=== PATIENT | male | born 1960 | race Caucasian/White ===

== ENCOUNTER 2017-02-08 07:23 | Day surgery (SDC) | payer MEDICAID ==
[~2017-02-08] VITALS: Ht 190.5 cm; Wt 127.0 kg
[2017-02-08] MEDS ORDERED: ASPIRIN/SOD BICARB/CITRIC ACID 324MG TAB EFF ONE (07:47)
[2017-02-08] MEDS ORDERED: ASPI-1159 PO (07:55)
[2017-02-08] MEDS ORDERED: METO-296 PO (07:55)
[2017-02-08] MEDS ORDERED: MIDAZOLAM HCL 2 MG/2 ML VIAL ONE (08:16)
[2017-02-08] MEDS ORDERED: IODIXANOL 320MG/ML 100 ML BOTTLE IV ONE (08:16)
[2017-02-08] MEDS ORDERED: FENTANYL CITRATE/PF 50MCG/ML 2ML VIAL ONE (08:16)
[2017-02-08] MEDS ORDERED: HEPARIN SODIUM 1,000 UNIT/1ML VIAL IV ONE (08:16)
[2017-02-08] MEDS ORDERED: LIDOCAINE HCL 1% 20ML VIAL (Pyxis) INJ ONE (08:17)
[2017-02-08] MEDS ORDERED: HYDROMORPHONE HCL/PF 2MG/ML (OR) ONE (08:30)
[2017-02-08] MEDS ORDERED: SODIUM CHLORIDE 0.45% 1,000 ML IV ONE (09:00)
[2017-02-08] MEDS ORDERED: ONDANSETRON HCL 4MG/2ML VIAL IV PRN (09:00)
[2017-02-08] MEDS ORDERED: ATROPINE SULFATE 1MG/10ML SYR IV PRN (09:00)
[2017-02-08] MEDS ORDERED: MORPHINE SULFATE 2 MG/ML CPJ (NOT FOR IM USE) IV PRN (09:00)
[2017-02-08] MEDS ORDERED: ACETAMINOPHEN 325MG TABLET PO PRN (09:00)
[2017-02-08] MEDS ORDERED: NICARDIPINE 100MCG/ML 10ML VIAL (CATH LAB) IV ONE (14:03)
[2017-02-08] MEDS ORDERED: NITROGLYCERIN 50MCG/ML 10ML VIAL (CATH LAB) IV ONE (14:03)
== END 2017-02-08 13:30 | disposition home or self-care (01) ==
LOC: CCL 07:23
PROVIDERS: ATTEND Specialist
DX: I25.10 Atherosclerotic heart disease of native coronary artery without angina pectoris (principal); I10 Essential (primary) hypertension
CPT/HCPCS: 93458; 99152; 99153; C1769; C1887; C1893; J1170; J1644; J2250; J3010; J3490; Q9967